=== PATIENT | female | born 1980 | race Caucasian/White ===

== ENCOUNTER 2023-03-28 09:31 | Outpatient (CLI) | payer BC, SELFPAY | END 2023-03-28 09:32 | disposition home or self-care (01) | LOC: NFLDREF 04-01 15:18 | PROVIDERS: PCP Family Medicine; Referring Provider Family Medicine; Visit Provider Family Medicine | DX: Z79.899 Other long term (current) drug therapy (principal) | CPT/HCPCS: 80053; 80061; 82306; 84443 ==

== ENCOUNTER 2024-05-13 12:40 | Outpatient (CLI) | payer OTHER, SELFPAY | END 2024-05-13 12:41 | disposition home or self-care (01) | LOC: NFLDREF 05-14 08:57 | PROVIDERS: PCP Family Medicine; Referring Provider Family Medicine; Visit Provider Family Medicine | DX: Z00.00 Encounter for general adult medical examination without abnormal findings (principal); E03.9 Hypothyroidism, unspecified; R10.9 Unspecified abdominal pain; K59.00 Constipation, unspecified; F41.9 Anxiety disorder, unspecified; M54.9 Dorsalgia, unspecified; R68.82 Decreased libido; F41.0 Panic disorder [episodic paroxysmal anxiety]; F90.9 Attention-deficit hyperactivity disorder, unspecified type; F32.0 Major depressive disorder, single episode, mild; G35 Multiple sclerosis; Z13.6 Encounter for screening for cardiovascular disorders; Z13.1 Encounter for screening for diabetes mellitus | CPT/HCPCS: 80053; 84443 ==

== ENCOUNTER 2024-07-22 11:20 | Outpatient (CLI) | payer OTHER, SELFPAY ==
--- NOTE | 2024-07-22 11:30 | CRLHL7_ITS ---
For Patients: As a result of the Century Cures Act, medical imaging exams and procedure reports are released immediately into your electronic medical record. You may view this report before your referring provider. If you have questions, please contact your health care provider. BILATERAL SCREENING MAMMOGRAM WITH COMPUTER-AIDED DETECTION AND TOMOSYNTHESIS TECHNIQUE: CC and MLO views were obtained. These mammographic images have been obtained using full-field digital technique. These mammographic images were interpreted with the benefit of computer-aided detection. Breast Tomosynthesis was used in this interpretation. COMPARISON FILM: 12/03/18 (left only) FINDINGS: The breasts are heterogeneously dense, which may obscure small masses IMPRESSION: There is no radiographic evidence for malignancy. ASSESSMENT: BI-RADS Category 1: Negative RECOMMENDATION: Routine screening mammogram in 1 year. A lay language report of this examination will be provided to the patient. Josue Caruso M.D. Diagnostic Radiologist [email or web address] Transcribed: 3:13 [email or web address] [email or web address]/Dictated by: Josue Caruso MD @ 07/22/2024 12:09:00 PM (Electronically Signed)
== END 2024-07-22 11:21 | disposition home or self-care (01) ==
LOC: MAMMO 11:21
PROVIDERS: PCP Family Medicine; Visit Provider Family Medicine
DX: Z12.31 Encounter for screening mammogram for malignant neoplasm of breast (principal); R92.333 Mammographic heterogeneous density, bilateral breasts
CPT/HCPCS: 77063; 77067

== ENCOUNTER 2025-05-11 14:39 | Outpatient (CLI) | payer OTHER, SELFPAY | END 2025-05-11 14:40 | disposition home or self-care (01) | LOC: NFLDREF 05-14 08:00 | PROVIDERS: PCP Family Medicine; Referring Provider Family Medicine; Visit Provider Family Medicine | DX: R53.83 Other fatigue (principal); J02.9 Acute pharyngitis, unspecified; R51.9 Headache, unspecified | CPT/HCPCS: 86663 ==

== ENCOUNTER 2025-07-21 08:10 | Outpatient (CLI) | payer OTHER, SELFPAY | END 2025-07-21 08:11 | disposition home or self-care (01) | LOC: NFLDREF 08:15 | PROVIDERS: PCP Family Medicine; Visit Provider Family Medicine | DX: E03.9 Hypothyroidism, unspecified (principal); Z13.9 Encounter for screening, unspecified | CPT/HCPCS: 80053; 80061; 84443 ==